=== PATIENT | female | born 1975 | race Caucasian/White ===

== ENCOUNTER → 2016-12-28 | Outpatient (CLI) | payer OTHER ==
[~2016-12-28] MED LIST: LISINOPRIL20 MG PO
== END | disposition home or self-care (01) ==
LOC: EKG 12:59
DX: I27.20 Pulmonary hypertension, unspecified (principal); I51.7 Cardiomegaly; E04.2 Nontoxic multinodular goiter; R94.31 Abnormal electrocardiogram [ECG] [EKG]
CPT/HCPCS: 76536; 93306

== ENCOUNTER 2017-01-12 16:20 | Emergency (ER) | payer OTHER | END 2017-01-12 16:32 | disposition left against medical advice (07) | LOC: EME 16:20 | DX: R42 Dizziness and giddiness (principal); Z53.21 Procedure and treatment not carried out due to patient leaving prior to being seen by health care provider ==

== ENCOUNTER → 2017-01-14 | Outpatient (CLI) | payer OTHER | END | disposition home or self-care (01) | LOC: RES 09:00 | DX: J98.01 Acute bronchospasm (principal); J98.4 Other disorders of lung; I27.20 Pulmonary hypertension, unspecified | CPT/HCPCS: 94060; 94726; 94729 ==

== ENCOUNTER 2017-05-15 20:17 | Emergency (ER) | payer OTHER ==
[~2017-05-15] VITALS: Ht 165.1 cm; Wt 88.5 kg
[2017-05-15 21:13] LABS: HEMATOCRIT 43.9 % (36.0-46.0); HEMOGLOBIN 14.8 G/DL (11.9-15.5); MCH 27.2 PG (29.0-34.0); MCHC 33.7 G/DL (30.0-36.0); MCV 80.7 FL (83-99); PLATELET COUNT 404 K/uL (156-360); RBC DIS.WIDTH-CV 12.7 % (11.8-14.6); RBC DIS.WIDTH-SD 36.8 % (39-53); RED BLOOD COUNT 5.44 M/uL (3.80-5.20); WHITE BLOOD COUNT 13.4 K/uL (4.1-10.2)
[2017-05-15 21:24] LABS: ALBUMIN 4.5 g/dL (3.2-4.8); CHLORIDE 104 mEq/L (99-109); POTASSIUM 3.7 mEq/L (3.7-5.4); SODIUM 140 mEq/L (136-147)
[2017-05-15 21:26] LABS: GLUCOSE 101 mg/dL (70-99)
[2017-05-15 21:27] LABS: TOTAL PROTEIN 7.7 g/dL (6.4-8.3)
[2017-05-15 21:28] LABS: TOTAL BILIRUBIN 0.4 mg/dL (0.0-1.0)
[2017-05-15 21:30] LABS: ALKALINE PHOSPHATASE 79 IU/L (3-129); CREATININE 0.9 mg/dL (0.6-1.3); GFR ESTIMATE (CALCULATED) > 59 mL/min/
[2017-05-15 21:31] LABS: UREA NITROGEN (BUN) 10 mg/dL (9-23)
[2017-05-15 21:32] LABS: AST (GOT) 22 IU/L (2-34)
[2017-05-15 21:33] LABS: ALT (GPT) 34 IU/L (3-49)
[2017-05-15 21:45] LABS: QUANTITATIVE HCG < 4.0 MIU/ML
[2017-05-16 00:47] LABS: APPEARANCE SL.HAZY ((CLEAR)); BILIRUBIN NEGATIVE; BLOOD NEGATIVE; COLOR YELLOW ((YELLOW)); GLUCOSE (STRIP) NEGATIVE; KETONES 20; LEUKOCYTES LARGE; NITRITE NEGATIVE; PROTEIN (STRIP) NEGATIVE; SPECIFIC GRAVITY 1.008 (1.000-1.030); UROBILINOGEN 0.2 MG/DL (0.2-1.0)
[2017-05-16 00:52] LABS: BACTERIA 2+ /HPF; EPITHELIAL CELLS 1+ /HPF; MUCUS TRACE /LPF; RED BLOOD CELLS 0-5 /HPF (0-5); UCUL ADDED? YES
[2017-05-16] MEDS ORDERED: BACTRIM,SEPT1 TABLET PO (01:13)
[2017-05-16 01:29] VITALS: BP 116/68
[2017-05-16 07:56] LABS: THYROTROPIN (TSH) 0.36 MIU/L (0.4-5.5)
== END 2017-05-16 01:29 | disposition home or self-care (01) ==
LOC: EME 20:17
PROVIDERS: Physician Assistant
DX: I10 Essential (primary) hypertension (principal); R51 Headache; N39.0 Urinary tract infection, site not specified
CPT/HCPCS: 70450; 80053; 81003; 84439; 84443; 84702; 85027; 86038; 86618; 87086; 93005; 99281; 99285

== ENCOUNTER 2017-06-23 06:36 | Day surgery (SDC) | payer OTHER ==
[~2017-06-23] VITALS: Ht 167.6 cm; Wt 83.0 kg
[~2017-06-23 06:36] MED LIST changes: +BACTRIM,SEPT1 TABLET PO; +PROAIR HFA8.5 GM IH; +TYLENOL EXTRA500 MG PO; +XANAX2 MG PO
[2017-06-23 07:42] VITALS: BP 140/93
[2017-06-23] MEDS ORDERED: NORCO 5/3251 TABLET PO (09:24)
[2017-06-23 11:10] VITALS: BP 151/74
[2017-06-23 12:10] VITALS: BP 141/77
[2017-06-23 13:21] VITALS: BP 143/77
== END 2017-06-23 13:30 | disposition home or self-care (01) ==
LOC: SDC 06:36
PROC: 0FT44ZZ Resection of Gallbladder, Percutaneous Endoscopic Approach (ICD-10-PCS; principal; 2017-06-23)
DX: K80.10 Calculus of gallbladder with chronic cholecystitis without obstruction (principal); I10 Essential (primary) hypertension; J45.909 Unspecified asthma, uncomplicated; E03.9 Hypothyroidism, unspecified; R00.1 Bradycardia, unspecified; E66.9 Obesity, unspecified; Z68.30 Body mass index [BMI] 30.0-30.9, adult
CPT/HCPCS: 88304; J0131; J0690; J1100; J1170; J1885; J2250; J2405; J2710; J3010; J3475; J7120; J7643; Q0175; S0020